=== PATIENT | male | born 1925 | race Caucasian/White ===

== ENCOUNTER → 2016-08-04 | Outpatient (CLI) | payer MEDICARE, BC | END | disposition home or self-care (01) | LOC: PCVCCLINIC 10:38 | PROVIDERS: ATTEND Internal Medicine Cardiovascular Disease | DX: I77.9 Disorder of arteries and arterioles, unspecified (principal); E78.5 Hyperlipidemia, unspecified; I63.9 Cerebral infarction, unspecified; R01.1 Cardiac murmur, unspecified; I35.0 Nonrheumatic aortic (valve) stenosis; I10 Essential (primary) hypertension | CPT/HCPCS: 80061; 93005; G0463 ==

== ENCOUNTER → 2017-06-22 | Outpatient (CLI) | payer MEDICARE, BC | END | disposition home or self-care (01) | LOC: PCVCIMAG 09:08 | DX: I25.10 Atherosclerotic heart disease of native coronary artery without angina pectoris (principal); I10 Essential (primary) hypertension; I63.9 Cerebral infarction, unspecified; I35.0 Nonrheumatic aortic (valve) stenosis; I87.2 Venous insufficiency (chronic) (peripheral); I77.9 Disorder of arteries and arterioles, unspecified; Z87.891 Personal history of nicotine dependence; Z79.899 Other long term (current) drug therapy; Z79.82 Long term (current) use of aspirin | CPT/HCPCS: 80061; 93005; 93306; G0463 ==